=== PATIENT | male | born 1955 | race African-American/Black ===

== ENCOUNTER 2018-07-23 01:45 | Inpatient (IN) | payer MEDICAID, OTHER ==
[2018-07-23] VITALS (7 sets, daily range): BP systolic 156–245; BP diastolic 84–156
[~2018-07-23] VITALS: Ht 177.8 cm; Wt 113.4 kg
--- NOTE | 2018-07-23 01:45 | NUR ---
PATIENT BIB ALS TO ER BED 10.
--- NOTE | 2018-07-23 01:45 | NUR ---
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 PT ARRIVED W CPAP, SATS 92%, 98HR. PER EMS PT WAS 88% ON RA ON SCENE. PT NOTED WITH INCREASED WOB, COARSE LUNG SOUNDS THROUGHOUT, LABORED BREATHING. SKIN DIAPHORETIC AND CLAMMY. AOX4, GCS 15. DENIES CHEST PAIN. PMH: HTN, CHF, DM
[2018-07-23] MEDS ORDERED: MORPHINE SULFATE 4 MG/ML SYR IVP ONE (01:50)
[2018-07-23] MEDS ORDERED: NITROGLYCERIN 2% 1 GM PKT TP ONE (01:50)
[2018-07-23] MEDS ORDERED: FUROSEMIDE 40 MG/4 ML VIAL IVP ONE (02:15)
[2018-07-23] MEDS ORDERED: NITROGLYCERIN 50 MG/D5W PREMIX 250 ML IV ONE ×2 (02:15→02:19)
[2018-07-23] MEDS: ENALAPRILAT 2.5 MG/2 ML VIAL IVP ONE ×2 (02:34→02:37)
--- NOTE | 2018-07-23 02:45 | NUR ---
PT REPORTS HE FEEL BETTER. 99% ON BIPAP, 22RR EVEN AND UNLABORED, TOLERATING BIPAP WELL.
[2018-07-23 03:13] LABS: ANION GAP 12.2 (8-16); CARBON DIOXIDE 26.2 mmol/L (21-32); CREATININE 1.5 mg/dL (0.7-1.3); HEMATOCRIT 47.6 % (36-52); HEMOGLOBIN 15.4 g/dL (12.0-18.0); MEAN CORPUSCULAR HEMOGLOBIN 28 pg (27-31); MEAN CORPUSCULAR VOLUME 86.9 fL (80-94); POTASSIUM 3.4 mmol/L (3.5-5.1); RED BLOOD CELL COUNT(AUTO) 5.48 MIL/uL (4.20-6.10); WHITE BLOOD COUNT (AUTO) 8.5 K/uL (4.8-10.8)
[2018-07-23 03:14] LABS: BASOPHILS % (AUTO) 1.6 % (0.0-2.0); EOSINOPHILS # (AUTO) 0.2 K/uL (0-0.4); EOSINOPHILS % (AUTO) 2.9 % (0.0-4.0); LYMPHOCYTES # (AUTO) 1.1 K/uL (2.0-11.5); LYMPHOCYTES % (AUTO) 12.6 % (20.5-51.1); MEAN CORPUSCULAR HGB CONC 32 g/dL (33-37); MONOCYTES # (AUTO) 0.3 K/uL (0.8-1.0); MONOCYTES % (AUTO) 3.8 % (1.7-9.3); NEUTROPHILS # (AUTO) 6.8 K/uL (1.8-7.7); NEUTROPHILS % (AUTO) 79.1 % (42.2-75.2); PLATELET COUNT (AUTO) 297 K/uL (140-450); RED CELL DISTRIBUTION WIDTH 13.8 % (11.6-13.7)
[2018-07-23 03:15] LABS: BASOPHILS # (AUTO) 0.1 K/uL (0.00-0.22)
[2018-07-23 03:17] LABS: PROTHROMBIN TIME 10.4 secs (10.8-13.4)
[2018-07-23 03:19] LABS: ALBUMIN 3.9 g/dL (3.4-5.0); TOTAL BILIRUBIN 0.3 mg/dL (0.0-1.0)
[2018-07-23 03:27] LABS: CREATINE KINASE MB 3.2 ng/mL (0-3.6)
--- NOTE | 2018-07-23 03:50 | NUR ---
DC TO NITRO DRIP PER ER MD ORDER. BP 102/71, 86HR, 98% ON 8LPM SIMPLE MASK
[2018-07-23] MEDS ORDERED: NITROGLYCERIN 0.4 MG TAB SL PRN (04:00)
[2018-07-23] MEDS ORDERED: POTASSIUM CHLORIDE 10 MEQ TABER PO ONE ×2 (04:00→06:45)
[2018-07-23] MEDS ORDERED: DOCUSATE SODIUM 100 MG GELCAP PO PRN (04:00)
[2018-07-23] MEDS ORDERED: ACETAMINOPHEN 325 MG TAB PO PRN (04:00)
[2018-07-23] MEDS ORDERED: ONDANSETRON 4 MG/2 ML VIAL IM/IVP PRN (04:00)
[2018-07-23] MEDS ORDERED: DEXTROSE 50% 50 ML SYR IVP PRN (04:00)
[2018-07-23] MEDS ORDERED: ALBUTEROL SULFATE/IPRATROPIU 3 ML SOL IH PRN (04:00)
[2018-07-23] MEDS ORDERED: MORPHINE SULFATE 2 MG/ML SYR IVP PRN (04:00)
[2018-07-23] MEDS ORDERED: HYDROcodone/APAP 5/325 MG 1 TAB TAB PO PRN (04:00)
--- NOTE | 2018-07-23 04:10 | NUR ---
Patient appears to be resting comfortably in bed. Respirations even and unlabored, continues on 6LPM MASK, sats 96%
--- NOTE | 2018-07-23 04:31 | NUR ---
APatient will be admitted to care of [facility]. Admited to TELE. Will go to room 111B. Belongings list completed. Report to MONIQUE ALVARADO.
--- NOTE | 2018-07-23 04:35 | NUR ---
RECEIVED REPORT FROM DAYSHIFT NURSE AT BEDSIDE FOR CONTINUITY OF CARE. PT AAOX4. PT IV NOTED LHAND 20G & RHAND 22G. NO SOB NO S/S OF DISTRESS ON 6L OXYGEN MASK. BED LOWERED CALL LIGHT WITHIN REACH WILL CONTINUE TO MONITOR.
[2018-07-23] MEDS ORDERED: POTASSIUM CHLORIDE 10 MEQ TABER PO SCH (05:00)
--- NOTE | 2018-07-23 05:30 | NUR ---
PER MD. KEEP HIGH FOWLERS FOR IMPROVEMENT OF BREATHING. WILL CONTINUE TO MONITOR.
[2018-07-23] MEDS: NACL 0.9% 1,000 ML IV SCH (05:55)
[2018-07-23] MEDS: INSULIN LISPRO SLIDING SCALE 100 UNITS/ML VIAL SUBQ PRN ×3 (06:34→20:51)
[2018-07-23] MEDS: BLOOD GLUCOSE MONITORING 1 DEV DEV FS SCH ×4 (06:44→21:56)
--- NOTE | 2018-07-23 07:28 | NUR ---
ENDORSED REPORT TO DAYSHIFT NURSE AT BEDSIDE FOR CONTINUITY OF CARE.
--- NOTE | 2018-07-23 07:29 | NUR ---
RECEIVED REPORT FROM NURSE AT BEDSIDE. PT LYING O HIS BED, IN SEMI-REYNOLDS POSITION. HAS MASK ON, WITH 6 LPM O2 SUPPLY. DX: ACUTE SHORTNESS OF BREATH. HAS THE IV ACCESS ON BOTH BANDS FA, 22 G. IVF INFUSING AT 10 ML/HR TKO. PT ON STRICT I&O, PLACE THE URINAL AT HIS BEDSIDE . INFORMED TO USE CALL LIGHT FOR ANY HELP AND LET NURSE KNOW FOR EMPTYING URINAL. VERBALIZED UNDERSTANDING. SENT URINE SAMPLE TO LAB FOR URINALYSIS. INTRODUCED SELF, UPDATED BOARD. PLACED CALL LIGHT WITHIN PT REACH. INSTRUCTED TO USE CALL LIGHT FOR ANY HELP. BED AT LOWER POSITION. PT HOB ELEVATED. NO SIGN OF DISTRESS NOTED. WILL CONTINUE WITH CURRENT PLAN OF CARE.
[2018-07-23] MEDS: ALBUTEROL SULFATE/IPRATROPIU 3 ML SOL IH SCH ×3 (07:46→18:45)
--- NOTE | 2018-07-23 07:50 | NUR ---
RCV'D PT ON ROOM AIR. SPO2 93% HR 81 CLEAR BREATH SOUNDS BILATERALLY . GOOD CHEST RISE. HHN TX GIVEN WITH NO ADVERSE REACTION. NO SOB OR DISTRESS NOTED. WILL CONTINUE TO MONITOR.
[2018-07-23] MEDS: ASPIRIN 81 MG TAB.CHEW PO SCH (08:38)
--- NOTE | 2018-07-23 08:43 | NUR ---
ADMINISTERED MEDS TO PT ORDERED. PT SITING ON SIDE OF BED. DENIES ANY CHEST PAIN. TOLERATED MEDS WELL. STATES TO HAVE SLIGHT COUGH, DENIES ANY PAIN. INFORMED PT TO USE CALL LIGHT FOR ANY HELP. INFORMED HIM TO USE URINAL , TO TRACK HIS OUTPUT.VERBALIZED UNDERSTANDING. WILL CONTINUE TO MONITOR PT.
[2018-07-23 08:54] LABS: AMYLASE 70 U/L (25-115); HDL CHOLESTEROL 35 mg/dL (40-60); LDL (CALC) 109 mg/dL (60-100); LIPASE 136 U/L (73-393); THYROID STIMULATING HORMONE 3.72 uIU/mL (0.34-3.74); TRIGLYCERIDES 153 mg/dL (30-150)
[2018-07-23] MEDS ORDERED: FUROSEMIDE 40 MG/4 ML VIAL IVP SCH (09:00)
--- NOTE | 2018-07-23 09:10 | NUR ---
PATIENT HAS BEEN SCREENED AND CATEGORIZED MODERATE NUTRITION RISK. PATIENT WILL BE SEEN WITHIN 3-5 DAYS OF ADMISSION. 07/25/18 07/27/[address]
[2018-07-23 09:15] LABS: MAGNESIUM 1.9 mg/dL (1.8-2.4); PHOSPHORUS 4.6 mg/dL (2.5-4.9)
[2018-07-23 09:30] LABS: APPEARANCE,URINE CLEAR (CLEAR); BILIRUBIN,URINE NEGATIVE (NEGATIVE); COLOR,URINE YELLOW (YELLOW); LEUKOCYTE ESTERASE ,URINE NEGATIVE (NEGATIVE); NITRITE, URINE NEGATIVE (NEGATIVE); UGLUCOSE NEGATIVE (NEGATIVE)
[2018-07-23 09:52] LABS: BLOOD, URINE TRACE (NEGATIVE); RBC,URINE 0-5 (RARE) /HPF (0-5); WBC,URINE 0-5 (RARE) /HPF (0-5)
[2018-07-23] MEDS ORDERED: TAMS0.4C97 PO (11:55)
[2018-07-23] MEDS ORDERED: CARV12.5 PO (11:55)
[2018-07-23] MEDS ORDERED: ATOR20TA PO (11:55)
[2018-07-23] MEDS ORDERED: ADA60 PO (11:55)
[2018-07-23] MEDS ORDERED: ALBU0.0912 INH (11:55)
[2018-07-23] MEDS ORDERED: HYDR100T79 PO (11:56)
[2018-07-23] MEDS ORDERED: LISI10TA11 PO (11:58)
[2018-07-23] MEDS ORDERED: ALBUTEROL HFA MDI 90 MCG/ACTUATION 8 GM INH PRN (12:00)
[2018-07-23] MEDS ORDERED: CARVEDILOL 12.5 MG TAB PO SCH ×2 (12:04→21:00)
[2018-07-23] MEDS ORDERED: LISINOPRIL 10 MG TAB PO SCH (12:08)
[2018-07-23] MEDS ORDERED: NIFEdipine 60 MG TABER PO SCH (12:10)
[2018-07-23] MEDS: hydrALAZINE 25 MG TAB PO SCH ×2 (12:37→17:29)
--- NOTE | 2018-07-23 15:16 | NUR ---
PT OFF THE UNIT FOR NMV SCAN. WENT WITH NM TECH ON WHEEL CHAIR. PT IN STABLE CONDITION.
[2018-07-23] MEDS ORDERED: TAMSULOSIN 0.4 MG CAP PO SCH (17:30)
--- NOTE | 2018-07-23 17:36 | NUR ---
ADMINISTERED MEDS TO PT ORDERED. BS 172, ADMINISTERED 2 UNITS OF INSULIN. PT LYING COMFORTABLY ON HIS BED. NO SIGN OF DISTRESS. WILL CONTINUE TO MONITOR PT.
[2018-07-23 18:42] LABS: BASOPHILS % (AUTO) 0.4 % (0.0-2.0); EOSINOPHILS # (AUTO) 0.1 K/uL (0-0.4); EOSINOPHILS % (AUTO) 1.1 % (0.0-4.0); HEMATOCRIT 47.9 % (36-52); HEMOGLOBIN 15.7 g/dL (12.0-18.0); LYMPHOCYTES # (AUTO) 1.2 K/uL (2.0-11.5); LYMPHOCYTES % (AUTO) 14.2 % (20.5-51.1); MEAN CORPUSCULAR HEMOGLOBIN 28 pg (27-31); MEAN CORPUSCULAR HGB CONC 33 g/dL (33-37); MEAN CORPUSCULAR VOLUME 86.8 fL (80-94); MONOCYTES # (AUTO) 0.6 K/uL (0.8-1.0); MONOCYTES % (AUTO) 7.4 % (1.7-9.3); NEUTROPHILS # (AUTO) 6.3 K/uL (1.8-7.7); NEUTROPHILS % (AUTO) 76.9 % (42.2-75.2); PLATELET COUNT (AUTO) 234 K/uL (140-450); RED BLOOD CELL COUNT(AUTO) 5.52 MIL/uL (4.20-6.10); RED CELL DISTRIBUTION WIDTH 15.1 % (11.6-13.7); WHITE BLOOD COUNT (AUTO) 8.2 K/uL (4.8-10.8)
--- NOTE | 2018-07-23 19:05 | NUR ---
ENDORSED PT TO PM NURSE AT BEDSIDE . PT IN STABLE CONDITION. PT MOBILE PHONE GIVEN BACK TO PT AFTER BEING CHARGED IN NURSING STATION.
--- NOTE | 2018-07-23 19:07 | NUR ---
RECEIVED REPORT FROM DAYS SHIFT NURSE. PT LYING IN BED, WATCHING TV. NO C/O PAIN OR SOB. ON O2 AT 2L/MIN VIA NC. IV TO RIGHT HAND #22G, NS AT 10 ML, INFUSING WELL. IV LINE TO LEFT HAND #20G, SALINE LOCK. SKIN INTACT. SAFETY PRECAUTION IN PLACE. CALL LIGHT WITHIN REACH.
[2018-07-23 19:24] LABS: CARBON DIOXIDE 30.5 mmol/L (21-32); CREATININE 1.7 mg/dL (0.7-1.3); POTASSIUM 3.5 mmol/L (3.5-5.1)
--- NOTE | 2018-07-23 20:45 | NUR ---
PT'S BP 167/84. DR. GOINS MADE AWARE. PER , JUST GIVE THE BP MEDS DUE AT 2100.
[2018-07-23] MEDS: RAMIPRIL 5 MG CAP PO SCH (20:47)
[2018-07-23] MEDS: CARVEDILOL 12.5 MG TAB PO SCH (20:48)
[2018-07-23] MEDS ORDERED: ISOSORBIDE MONONITRATE 30 MG TABER PO SCH ×2 (21:00)
--- NOTE | 2018-07-23 23:10 | NUR ---
PT SLEEPING. NO S/S OF PAIN. NO S/S OF RESP DISTRESS. CALL LIGHT WITHIN REACH.
[2018-07-24] VITALS: BP 121/67
--- NOTE | 2018-07-24 02:30 | NUR ---
PT PULLED OUT IV LINE TO RIGHT HAND. PER PT, IVF WAS LEAKING. NO BLEEDING NOTED.
[2018-07-24] MEDS: NACL 0.9% 1,000 ML IV SCH (03:58)
[2018-07-24 04:00] VITALS: BP 118/60
--- NOTE | 2018-07-24 04:30 | NUR ---
PT SLEEPING BUT EASILY AROUSABLE. NO S/S OF PAIN OR SOB.
[2018-07-24] MEDS: INSULIN LISPRO SLIDING SCALE 100 UNITS/ML VIAL SUBQ PRN (06:31)
[2018-07-24] MEDS: BLOOD GLUCOSE MONITORING 1 DEV DEV FS SCH (06:33)
--- NOTE | 2018-07-24 06:35 | NUR ---
BLOOD SUGAR CHECKED 167. 2 UNITS OF HUMALOG GIVEN SUBQ.
[2018-07-24] MEDS: ALBUTEROL SULFATE/IPRATROPIU 3 ML SOL IH SCH (06:37)
--- NOTE | 2018-07-24 06:37 | NUR ---
PT SLEEPING WITH NO SIGNS OF DISTRESS NOTED AT THIS TIME, PT ON 2LNC AND NO HHN GIVEN TO PT AT THIS TIME
[2018-07-24 07:00] LABS: ANION GAP 7.4 (8-16); CARBON DIOXIDE 31.5 mmol/L (21-32); CREATININE 1.8 mg/dL (0.7-1.3); POTASSIUM 3.9 mmol/L (3.5-5.1)
[2018-07-24 07:05] LABS: MAGNESIUM 2.3 mg/dL (1.8-2.4); PHOSPHORUS 4.2 mg/dL (2.5-4.9)
--- NOTE | 2018-07-24 07:10 | NUR ---
ENDORSED PT TO DAY SHIFT NURSE. PT IN STABLE CONDITION.
--- NOTE | 2018-07-24 07:11 | NUR ---
RECEIVED REPORT FROM THE OPEN SOAPER TENDER NURSE AT BEDSIDE FOR CONTINUITY OF CARE. PT IS AWAKE AND ORIENTED. INTRODUCED MYSELF AND UPDATED THE BOARD. PT IS ON ROOM AIR. IV ON L HAND 20G NS AT 10ML. PT HAS PITTING EDEMA BLE 1+. V/S WITHIN NORMAL RANGE. DENIES PAIN. WAITING ON 2ND AND THIRD TROPONIN RESULTS. WILL AWAIT ORDERS.
--- NOTE | 2018-07-24 07:38 | NUR ---
LAB CALLED WITH CRITICAL. TROPONIN THAT WAS ADDED TO LAST NIGHT'S DRAW, CAME BACK HIGH 0.078. DID NOT NOTIFY MD D/T DOWN TREND AND ALSO THIRD TROPONIN IS NORMAL.
[2018-07-24 07:41] LABS: BASOPHILS % (AUTO) 0.5 % (0.0-2.0); EOSINOPHILS # (AUTO) 0.1 K/uL (0-0.4); EOSINOPHILS % (AUTO) 2.1 % (0.0-4.0); HEMATOCRIT 43.9 % (36-52); HEMOGLOBIN 14.4 g/dL (12.0-18.0); LYMPHOCYTES # (AUTO) 1.2 K/uL (2.0-11.5); LYMPHOCYTES % (AUTO) 21.6 % (20.5-51.1); MEAN CORPUSCULAR HEMOGLOBIN 28 pg (27-31); MEAN CORPUSCULAR HGB CONC 33 g/dL (33-37); MEAN CORPUSCULAR VOLUME 86.6 fL (80-94); MONOCYTES # (AUTO) 0.6 K/uL (0.8-1.0); MONOCYTES % (AUTO) 10.6 % (1.7-9.3); NEUTROPHILS # (AUTO) 3.5 K/uL (1.8-7.7); NEUTROPHILS % (AUTO) 65.2 % (42.2-75.2); PLATELET COUNT (AUTO) 239 K/uL (140-450); RED BLOOD CELL COUNT(AUTO) 5.07 MIL/uL (4.20-6.10); RED CELL DISTRIBUTION WIDTH 14.8 % (11.6-13.7); WHITE BLOOD COUNT (AUTO) 5.4 K/uL (4.8-10.8)
[2018-07-24 08:00] VITALS: BP 121/71
[2018-07-24] MEDS ORDERED: CARV12.52 PO (08:47)
[2018-07-24] MEDS ORDERED: ORE25 PO (08:47)
[2018-07-24] MEDS ORDERED: ASPI81CT95 PO (08:47)
[2018-07-24] MEDS ORDERED: ISOS30TE35 PO (08:47)
[2018-07-24] MEDS ORDERED: POTA10TE30 PO ×3 (08:47)
[2018-07-24] MEDS ORDERED: FUROSEMIDE 20 MG/2 ML VIAL IVP SCH (09:00)
[2018-07-24] MEDS ORDERED: NIFEdipine 60 MG TABER PO SCH (09:00)
[2018-07-24] MEDS ORDERED: POTASSIUM CHLORIDE 10 MEQ TABER PO SCH (09:00)
[2018-07-24] MEDS ORDERED: HYDROCHLOROTHIAZIDE 25 MG TAB PO SCH (09:00)
[2018-07-24] MEDS ORDERED: LISINOPRIL 10 MG TAB PO SCH (09:00)
[2018-07-24] MEDS ORDERED: ATORVASTATIN 20 MG TAB PO SCH (09:00)
[2018-07-24] MEDS: CARVEDILOL 12.5 MG TAB PO SCH (09:10)
[2018-07-24] MEDS: hydrALAZINE 25 MG TAB PO SCH (09:11)
[2018-07-24] MEDS: ASPIRIN 81 MG TAB.CHEW PO SCH (09:11)
[2018-07-24] MEDS: RAMIPRIL 5 MG CAP PO SCH (09:11)
--- NOTE | 2018-07-24 09:17 | NUR ---
ADMINISTERED MORNING MEDS. PT TOLERATED WELL. PT AWARE OF D/C TODAY. WILL START D/C PROCESS. WILL CONTINUE TO MONITOR PT.
--- NOTE | 2018-07-24 11:00 | NUR ---
DISCHARGE INSTRUCTIONS GIVEN. WENT OVER MEDICATIONS AND F/U APPT. INCLUDED IN HIS D/C PACKET REPORT OF ALL IMAGES AND LAB. PT VERBALIZED UNDERSTANDING. REMOVED ID BAND AND IV, CANNULA INTACT. NO BLEEDING NOTED. WILL GET DRESSED AND LET ME KNOW WHEN HE IS READY TO GO. PT IS IN STABLE CONDITION. WILL GET A WHEELCHAIR READY. PT TO CALL [employer] FOR A RIDE.
--- NOTE | 2018-07-24 11:30 | NUR ---
CLINICAL INFORMATION FAXED TO GENARO AT [place] FAX [phone] PER REQUEST.
--- NOTE | 2018-07-24 11:40 | NUR ---
PT REFUSED WHEELCHAIR. WALKED PT OUT TO THE FRONT OF THE HOSPITAL. [facility] THERE TO TRANSPORT HIM. PT IN STABLE CONDITION. ALL PERSONAL BELONGINGS WITH PT.
[2018-07-25] MEDS ORDERED: POTASSIUM CHLORIDE 10 MEQ TABER PO SCH (09:00)
[2018-07-29] MEDS ORDERED: POTASSIUM CHLORIDE 10 MEQ TABER PO SCH (09:00)
== END 2018-07-24 11:40 | disposition home or self-care (01) | DRG 199 ==
LOC: MED 01:45 → MTU 04:10
PROVIDERS: ADMIT General Practice; ATTEND General Practice
PROC: 5A09357 Assistance with Respiratory Ventilation, Less than 24 Consecutive Hours, Continuous Positive Airway Pressure (ICD-10-PCS; principal; 2018-07-23)
DX: I16.0 Hypertensive urgency (principal); N17.0 Acute kidney failure with tubular necrosis; J96.01 Acute respiratory failure with hypoxia; I50.43 Acute on chronic combined systolic (congestive) and diastolic (congestive) heart failure; E11.21 Type 2 diabetes mellitus with diabetic nephropathy; I07.1 Rheumatic tricuspid insufficiency; E66.01 Morbid (severe) obesity due to excess calories; E83.51 Hypocalcemia; I24.8 Other forms of acute ischemic heart disease; I25.10 Atherosclerotic heart disease of native coronary artery without angina pectoris; E87.6 Hypokalemia; I11.0 Hypertensive heart disease with heart failure; I16.1 Hypertensive emergency; E87.1 Hypo-osmolality and hyponatremia; E78.5 Hyperlipidemia, unspecified; G47.33 Obstructive sleep apnea (adult) (pediatric); J45.909 Unspecified asthma, uncomplicated; I34.0 Nonrheumatic mitral (valve) insufficiency; Z91.14 Patient's other noncompliance with medication regimen; Z91.11 Patient's noncompliance with dietary regimen; Z68.35 Body mass index [BMI] 35.0-35.9, adult; Z79.899 Other long term (current) drug therapy; Z79.84 Long term (current) use of oral hypoglycemic drugs
CPT/HCPCS: 36415; 71045; 78582; 80048; 80053; 81001; 82140; 82150; 82550; 82553; 82948; 83036; 83605; 83690; 83735; 83880; 84100; 84443; 84484; 85025; 85379; 85610; 85730; 87081; 93005; 93925; 93970; 94640; 94660; 96374; 96375; 99285; A9540; G0482; J1644; J1815; J1940; J2270; J3490; J7620; Q0092